=== PATIENT | male | born 1980 | race Caucasian/White ===

== ENCOUNTER 2018-11-18 16:26 | Emergency (ER) | payer SELFPAY | END 2018-11-18 20:52 | disposition left against medical advice (07) | LOC: FTE 16:26 | DX: Z53.21 Procedure and treatment not carried out due to patient leaving prior to being seen by health care provider (principal) ==

== ENCOUNTER 2019-03-25 09:58 | Emergency (ER) | payer OTHER | END 2019-03-25 11:14 | disposition home or self-care (01) | LOC: FTE 09:58 | DX: S01.81XA Laceration without foreign body of other part of head, initial encounter (principal); W01.0XXA Fall on same level from slipping, tripping and stumbling without subsequent striking against object, initial encounter; Y92.9 Unspecified place or not applicable | CPT/HCPCS: 12011; 99282-25 ==